=== PATIENT | female | born 1945 | race Caucasian/White ===

== ENCOUNTER 2017-01-28 06:33 | Inpatient (IN) | payer MEDICARE, MEDICAID ==
[2017-01-22 12:15] LABS: HEMATOCRIT 40.8 % (36.0-47.0); HEMOGLOBIN 13.1 g/dL (12.0-15.5); HGB HCT DIFFERENCE -1.5; MEAN CORPUSCULAR HGB CONC 32.1 g/dL (32.0-36.0); MEAN CORPUSCULAR VOLUME 87 fl (80-97); RED BLOOD COUNT 4.68 10^6/uL (3.72-5.28); RED CELL DISTRIBUTION WIDTH 16.7 % (11.5-14.0); WHITE BLOOD COUNT 9.1 10^3/uL (4.0-10.5)
--- NOTE | 2017-01-22 12:19 | RADIOLOGY REPORT (SQ) ---
EXAM DESCRIPTION: CHEST PA/LATERAL COMPLETED DATE/TIME: 01/22/2017 11:36 am REASON FOR STUDY: PRE OP COMPARISON: MRI lumbar spine 07/01/2012 AP chest 06/21/2012 EXAM PARAMETERS: NUMBER OF VIEWS: two views TECHNIQUE: Digital Frontal and Lateral radiographic views of the chest acquired. RADIATION DOSE: NA LIMITATIONS: none FINDINGS: LUNGS AND PLEURA: No opacities, masses or pneumothorax. No pleural effusion. MEDIASTINUM AND HILAR STRUCTURES: No masses or contour abnormalities. HEART AND VASCULAR STRUCTURES: Heart normal size. No evidence for failure. BONES: Stable lower thoracic compression deformities HARDWARE: None in the chest. OTHER: No other significant finding. IMPRESSION: NO SIGNIFICANT RADIOGRAPHIC FINDING IN THE CHEST. TECHNICAL DOCUMENTATION: JOB ID: [id number] [employer]- All Rights Reserved
[2017-01-22 12:24] LABS: APPEARANCE,URINE SLIGHTLY-CLOUDY; BILIRUBIN,URINE NEGATIVE (NEGATIVE); GLUCOSE, URINE NEGATIVE (NEGATIVE); KETONES,URINE NEGATIVE (NEGATIVE); LEUKOCYTE ESTERASE,URINE LARGE (NEGATIVE); NITRITE,URINE POSITIVE (NEGATIVE); PROTEIN,URINE NEGATIVE (NEGATIVE); URINE SPECIFIC GRAVITY 1.006; UROBILINOGEN,URINE NEGATIVE mg/dL (<2.0)
--- NOTE | 2017-01-22 12:44 | EKG REPORT ---
SEVERITY:- ABNORMAL ECG - SINUS RHYTHM LEFT ANTERIOR FASCICULAR BLOCK ANTERIOR INFARCT, AGE INDETERMINATE : Confirmed by: Jina Pike MD 22-Jan-2017 12:43:36
[2017-01-22 12:47] LABS: ALANINE AMINOTRANSFERASE 30 U/L (9-52); ALBUMIN 3.9 g/dL (3.5-5.0); ALKALINE PHOSPHATASE 125 U/L (38-126); ANION GAP 12 (5-19); ASPARTATE AMINO TRANSFERASE 23 U/L (14-36); BILIRUBIN,DIRECT 0.3 mg/dL (0.0-0.4); BILIRUBIN,TOTAL 0.4 mg/dL (0.2-1.3); BLOOD UREA NITROGEN 32 mg/dL (7-20); CALCIUM 10.4 mg/dL (8.4-10.2); CARBON DIOXIDE 29 mmol/L (22-30); CHLORIDE 102 mmol/L (98-107); CREATININE RESULT 1.06 mg/dL (0.52-1.25); GLUCOSE 128 mg/dL (75-110); POTASSIUM 4.5 mmol/L (3.6-5.0); SODIUM 142.6 mmol/L (137-145); TOTAL PROTEIN 7.8 g/dL (6.3-8.2)
[~2017-01-28 06:33] MED LIST: CEFAZOLIN 1 GM/D5W RTU 1 GM/50 ML RTUPB IV PRN; LACTATED RINGERS 1000 ML IV PRN; LIDOCAINE 0.5% INJ-PF (5 MG/ML) 50 ML SDV SUBCUT PRN
[2017-01-28] MEDS ORDERED: BUPIVACAINE HCL 0.25% /EPINEPHRINE INJ/PF 30 ML SDV ONE ×2 (07:23→11:13)
[2017-01-28] MEDS ORDERED: FENTANYL CITRATE INJ/PF 250 MCG/5 ML AMPULE ONE (08:52)
[2017-01-28] MEDS ORDERED: PROPOFOL INJ 200 MG/20 ML VIAL IV ONE (08:53)
[2017-01-28] MEDS ORDERED: IBUPROFEN INJ 800 MG/8 ML VIAL IV ONE (08:53)
[2017-01-28] MEDS ORDERED: MORPHINE SULFATE 10 MG/ML INJ ONE (08:53)
[2017-01-28] MEDS ORDERED: MIDAZOLAM 2 MG/2 ML INJ ONE (08:53)
[2017-01-28] MEDS ORDERED: METHYLENE BLUE 50 MG/10 ML AMPULE ONE (09:57)
[2017-01-28] MEDS ORDERED: ESTROGENS,CONJUGATED 0.625 MG/1 GM 30 GM TUBE PV PRN (10:47)
[2017-01-28] MEDS ORDERED: MORPHINE SULFATE 10 MG/ML INJ IV PRN ×2 (11:38→14:18)
[2017-01-28] MEDS ORDERED: MEPERIDINE HCL/PF INJ 25 MG/1 ML DISP.SYRIN IV PRN (11:38)
[2017-01-28] MEDS ORDERED: PROMETHAZINE HCL INJ 25 MG/1 ML VIAL IV PRN ×2 (11:38)
[2017-01-28] MEDS ORDERED: FENTANYL CITRATE INJ/PF 100 MCG/2 ML AMPUL IV PRN ×3 (11:38)
[2017-01-28] MEDS ORDERED: DIPHENHYDRAMINE HCL 50 MG/ML VIAL IV PRN (11:38)
[2017-01-28] MEDS ORDERED: OXYCODONE-ACETAMINOPHEN 5-325 MG TABLET PO PRN ×2 (11:38)
[2017-01-28] MEDS ORDERED: ACETAMINOPHEN 100 ML IV ONE ×2 (13:47→17:15)
[2017-01-28] MEDS: AMLODIPINE BESYLATE 5 MG TABLET PO ONE ×2 (13:50→15:07)
--- NOTE | 2017-01-28 13:51 | RADIOLOGY REPORT (SQ) ---
EXAM DESCRIPTION: NO CHG FLUORO COMPLETE DATE/TIME: 01/28/2017 1:38 pm REASON FOR STUDY: IVP N81.2 INCOMPLETE UTEROVAGINAL PROLAPSE R10.2 PELVIC AND PERINEAL PAIN N39.42 INCONTINENCE WITHOUT SENSORY AWARENESS FINDINGS: Please see combined report for performance of procedure and radiologic supervision and int erpretation. IMPRESSION: Please see combined report for performance of procedure and radiologic supervision and i nterpretation.
--- NOTE | 2017-01-28 13:51 | RADIOLOGY REPORT (SQ) ---
EXAM DESCRIPTION: KUB/ABDOMEN (SINGLE VIEW) COMPLETED DATE/TIME: 01/28/2017 1:38 pm REASON FOR STUDY: IVP N81.2 INCOMPLETE UTEROVAGINAL PROLAPSE R10.2 PELVIC AND PERINEAL PAIN N39.42 INCONTINENCE WITHOUT SENSORY AWARENESS COMPARISON: None. FLUOROSCOPY TIME: 2.9 minutes 2 images saved to PACS. TECHNIQUE: Intra-operative images acquired during surgical procedure to evaluate progress. NUMBER OF IMAGES: 2 LIMITATIONS: None. FINDINGS: Fluoroscopy was provided for intraoperative procedure. Please refer the operative report for further discussion. IMPRESSION: IMAGE(S) OBTAINED DURING PROCEDURE. COMMENT: Quality ID [id number]: Final reports for procedures using fluoroscopy that document radiation exp osure indices, or exposure time and number of fluorographic images (if radiation exposure indices are not available) Please consult full operative report of the attending physician for description of the procedure. TECHNICAL DOCUMENTATION: JOB ID: [id number] [employer]- All Rights Reserved
[2017-01-28] MEDS ORDERED: ONDANSETRON HCL INJ/PF 4 MG/2 ML SDV ONE (14:02)
[2017-01-28] MEDS ORDERED: METOCLOPRAMIDE HCL INJ/PF 10 MG/2 ML SDV ONE (14:02)
[2017-01-28] MEDS ORDERED: GLYCOPYRROLATE INJ 0.4 MG/2 ML VIAL ONE (14:02)
[2017-01-28] MEDS ORDERED: SUCCINYLCHOLINE CHLORIDE INJ 200 MG/10 ML VIAL ONE (14:02)
[2017-01-28] MEDS ORDERED: ROCURONIUM BROMIDE INJ 50 MG/5 ML VIAL IV ONE (14:02)
[2017-01-28] MEDS ORDERED: LIDOCAINE 2% INJ-PF (20 MG/ML) 10 ML AMPUL ONE (14:02)
[2017-01-28] MEDS ORDERED: NEOSTIGMINE METHYLSULFATE 10 MG/10 ML VIAL ONE (14:02)
[2017-01-28] MEDS ORDERED: FUROSEMIDE INJ/PF 40 MG/4 ML SDV ONE (14:23)
--- NOTE | 2017-01-28 14:41 | OPERATIVE REPORT E ---
Operative Report NAME: CHETNA SUGGS : 1945 AGE: 71Y DATE OF SURGERY: 01/28/2017 ROOM: OR PREOPERATIVE DIAGNOSIS: Complete procidentia. POSTOPERATIVE DIAGNOSIS: Complete procidentia. PROCEDURE: Total vaginal hysterectomy with anterior repair, posterior colporrhaphy and uterosacral suspension, cystoscopy, IVP done by Radiology, and Urology consult. SURGEON: SAMANTHA SAWYER M.D. PILOT SUPERVISOR: Dr. Joaquin ANESTHESIA: Dr. Dee with general. FINDINGS: A grade 4 uterovaginal prolapse of the anterior aspect. Small amount of maybe grade 1 posterior prolapse at the introitus of the vagina. On cystoscopy ureters could not be seen to efflux; therefore, a Urology consult was performed with Dr. Cazarse passing guidewires through both ureters without difficulty and verifying that they were patent and unobstructed. PROCEDURE IN DETAIL: The patient was taken to the operating room, prepared and draped in a normal sterile fashion in a dorsal lithotomy position in [facility]. A Bernal catheter was placed to gravity and the above findings were noted in regards to the prolapse. The anterior aspect of the cervix was grasped with a single-tooth tenaculum and the cervix was injected circumferentially with approximately 20 mL of 0.25% Marcaine with epinephrine. The mucosa was then scored circumferentially and the mucosa dissected away from the uterus using Cunningham scissors and pickups. The posterior cul-de-sac was entered sharply with Toni and the weighted speculum was replaced with a long weighted speculum. The uterosacral ligaments were then clamped and transected and tied off with 0 Vicryl on both sides without difficulty. The anterior aspect of the peritoneal cavity was then entered sharply with Toni as well, and a Severance retractor was placed for retraction. The rest of the uterus was then coagulated using a LigaSure device, carefully coagulating the bilateral uterine arteries until the level of the fundus until the specimen was freed. The fallopian tubes and ovaries were found to be well suspended and in light of the case were found not necessary for removal. We then began the anterior repair, grasping the anterior vaginal mucosa with 2 Allis and injecting in the midline with 0.25% Marcaine with epinephrine. The mucosa was then scored with a #15 blade and the mucosa was then dissected from the bladder using Metzenbaums and careful blunt dissection. The anterior repair was then performed using 0 Prolene, placing approximately 4 sutures across the bladder for support and tying these into place carefully. The mucosa was then dissected away from the bladder and the excess was trimmed. The vaginal cuff and the anterior repair were then closed using a vertical running stitch of 0 Vicryl. The uterosacral ligament suspension was performed prior to this using an 0 Prolene as well, and this stitch was held in place until we could verify the ureters were patent. The cystoscopy was performed, methylene blue was given x2, and the ureters were not able to be identified and found to be effluxing; therefore, after careful inspection with the cystoscopy for approximately 45 minutes we called Urology, Dr. Cazares, who came in. We had also initiated an IVP with Radiology and this was performed with the urologist present as well. Dr. Cazares then cystoscoped the patient once more and using a 5-Latvian catheter and guidewire was able to engage both ureters and verify their patency. The posterior colporrhaphy was then performed after injecting 10 mL of 0.25% Marcaine into the posterior introitus. An elliptical piece of mucosa was removed using a #15 blade. The bulbocavernosus muscles were then reapproximated with 2 stitches of 0 Vicryl and tied into place. The mucosa was then closed with 3-0 Vicryl in this area. The Bernal catheter was replaced. The vagina was then inspected once more and found to be hemostatic. The vagina was then packed with a Kerlix coated in Premarin cream, and the patient was taken to recovery in stable condition. DICTATING PHYSICIAN: SAMANTHA SAWYER M.D. [id number] PHY#: [id number] ID: [id number] JOB#: [id number] ACCT: [id number] cc:SAMANTHA SAWYER M.D. >
--- NOTE | 2017-01-28 14:44 | CONSULTATION REPORT E ---
Consultation Report NAME: CHETNA SUGGS : 1945 AGE: 71Y DATE: 01/28/2017 OR D TO: IMANI MORFIN M.D. FROM: Requesting Physician IMPRESSION: Normal cystoscopy with bilateral ureteral catheterization. RECOMMENDATIONS: Her bladder and ureters appear normal. Nothing further is needed from a urologic standpoint at this juncture. CONSULTATION: The patient is 71-year-old lady who had a bilateral salpingo-oophorectomy and ureteral sacral suspension with an anterior and posterior repair. At the conclusion of the procedure, Dr. Sawyer asked for me to evaluate the patient's ureters. She had been given methylene blue but there was scant methylene blue seen coming from either orifice so Dr. Sawyer wanted to be sure that the ureters were normal. I examined the bladder. There were no ulcerations, tumors or stones. The bladder mucosa appeared normal. The trigone had some redundant mucosa but the ureter orifices were normal in their location and configuration. I passed a guidewire up the left ureter and then was able to easily thread a 5-Algerian open-ended catheter up to the kidney. I then passed a guidewire up the right ureter and passed a 5-Algerian open-ended catheter up to the level of the kidney on the patient's right side. IMPRESSION: Normal cystoscopy. DICTATING PHYSICIAN: IMANI MORFIN M.D. [id number] PHY#: [id number] ID: [id number] JOB#: [id number] ACCT: [id number] cc:SAMANTHA SAWYER M.D. IMANI MORFIN M.D. >
[2017-01-28] MEDS: KETOROLAC TROMETHAMINE INJ/PF 30 MG/1 ML SDV IV SCH ×2 (15:09→21:41)
[2017-01-28] MEDS ORDERED: RINGERS SOLUTION,LACTATED 1,000 ML IV PRN (15:25)
[2017-01-28] MEDS ORDERED: FUROSEMIDE 40 MG TABLET PO PRN (15:36)
[2017-01-28] MEDS ORDERED: ACETAMINOPHEN INJ/PF 1000 MG/100 ML SDV IV ONE (17:00)
[2017-01-28] MEDS: AMPICILLIN SODIUM/SULBACTAM NA 3 GM in NORMAL SALINE 100 ML IV SCH (17:34)
[2017-01-28] MEDS: DOCUSATE SODIUM 100 MG CAPSULE PO SCH (17:35)
[2017-01-28] MEDS: OXYCODONE-ACETAMINOPHEN 5-325 MG TABLET PO PRN (19:02)
[2017-01-28] MEDS: ATORVASTATIN CALCIUM 10 MG TABLET PO SCH (21:41)
[2017-01-29] MEDS: AMPICILLIN SODIUM/SULBACTAM NA 3 GM in NORMAL SALINE 100 ML IV SCH ×2 (01:18→09:33)
[2017-01-29] MEDS: OXYCODONE-ACETAMINOPHEN 5-325 MG TABLET PO PRN ×3 (02:06→22:27)
[2017-01-29 05:01] LABS: HEMATOCRIT 33.5 % (36.0-47.0); HEMOGLOBIN 10.9 g/dL (12.0-15.5); HGB HCT DIFFERENCE -0.8; MEAN CORPUSCULAR HEMOGLOBIN 28.3 pg (27.0-33.4); MEAN CORPUSCULAR HGB CONC 32.7 g/dL (32.0-36.0); MEAN CORPUSCULAR VOLUME 87 fl (80-97); RED BLOOD COUNT 3.87 10^6/uL (3.72-5.28); RED CELL DISTRIBUTION WIDTH 16.2 % (11.5-14.0)
[2017-01-29] MEDS: KETOROLAC TROMETHAMINE INJ/PF 30 MG/1 ML SDV IV SCH (05:42)
[2017-01-29] MEDS: AMLODIPINE BESYLATE 5 MG TABLET PO SCH (08:34)
[2017-01-29] MEDS: ASPIRIN 81 MG TABLET, CHEWABLE PO SCH (08:34)
[2017-01-29] MEDS: FUROSEMIDE 20 MG TABLET PO SCH (08:34)
[2017-01-29] MEDS: BENAZEPRIL HCL 20 MG TABLET PO SCH (08:35)
[2017-01-29] MEDS: BACLOFEN 10 MG TABLET PO SCH (08:35)
[2017-01-29] MEDS: DOCUSATE SODIUM 100 MG CAPSULE PO SCH ×2 (08:35→17:30)
--- NOTE | 2017-01-29 12:28 | PDOC PROGRESS REPORT ---
Subjective Progress Note for:: 01/29/17 Subjective:: doing well. aviles removed this AM. no void as yet. tolerating regular diet Physical Exam - Physical Exam Vital Signs: Temp Pulse Resp BP Pulse Ox 98.2 F 74 19 113/48 L 96 01/29/17 11:15 01/29/17 11:15 01/29/17 11:15 01/29/17 11:15 01/29/17 11:15 Intake & Output 01/28/17 01/29/17 01/30/17 06:59 06:59 06:59 Intake Total 4525 Output Total 1460 Balance 3065 General appearance: PRESENT: no acute distress, cooperative Head exam: PRESENT: atraumatic GI/Abdominal exam: PRESENT: soft Gentrourinary exam: PRESENT: ecchymosis, urethral discharge - small amount of blood Result Laboratory Results: 01/29/17 04:49 01/22/17 10:53 01/29/17 04:49 WBC 11.0 H RBC 3.87 Hgb 10.9 L Hct 33.5 L MCV 87 MCH 28.3 MCHC 32.7 RDW 16.2 H Plt Count 183 Impressions: Chest X-Ray 01/22/17 11:23 IMPRESSION: NO SIGNIFICANT RADIOGRAPHIC FINDING IN THE CHEST. Fluoroscopy 01/28/17 00:00 IMPRESSION: Please see combined report for performance of procedure and radiologic supervision and interpretation. KUB X-Ray 01/28/17 00:00 IMPRESSION: IMAGE(S) OBTAINED DURING PROCEDURE. Assessment & Plan - Diagnosis (1) Uterovaginal prolapse, complete Is this a current diagnosis for this admission?: Yes (2) Pelvic pain in female Is this a current diagnosis for this admission?: Yes (3) Urinary tract infection Qualifiers: Urinary tract infection type: acute cystitis Is this a current diagnosis for this admission?: Yes (4) Bladder hypertrophy Is this a current diagnosis for this admission?: Yes - Time Time Spent with patient: Less than 15 minutes Critical Time spent with patient: Less than 15 minutes Medications reviewed and adjusted accordingly: Yes Anticipated discharge: Home Within: within 24 hours - Inpatient Certification Based on my medical assessment, after consideration of the patient's comorbidities, presenting symptoms, or acuity I expect that the services needed warrant INPATIENT care.: Yes I certify that my determination is in accordance with my understanding of Medicare's requirements for reasonable and necessary INPATIENT services [42 CFR 412.3e].: Yes Medical Necessity: Need Close Monitoring Due to Risk of Patient Decompensation, Need for IV Antibiotics, Risk of Complication if Not Cared For in Hospital - Plan Summary Plan Summary: will observe for normal voiding function to return. may need to have aviles catheter replaced. possible discharge with leg bag and urology f/u if voiding function does not return. saline lock iv encourage ambulation repeat UA to ensure nitrites have cleared.
[2017-01-29 17:16] LABS: APPEARANCE,URINE SLIGHTLY-CLOUDY; BILIRUBIN,URINE NEGATIVE (NEGATIVE); GLUCOSE, URINE NEGATIVE (NEGATIVE); KETONES,URINE NEGATIVE (NEGATIVE); LEUKOCYTE ESTERASE,URINE MODERATE (NEGATIVE); NITRITE,URINE NEGATIVE (NEGATIVE); PROTEIN,URINE NEGATIVE (NEGATIVE); URINE SPECIFIC GRAVITY 1.012; UROBILINOGEN,URINE NEGATIVE mg/dL (<2.0)
[2017-01-29] MEDS: IBUPROFEN 800 MG TABLET PO PRN (20:07)
[2017-01-29] MEDS: ATORVASTATIN CALCIUM 10 MG TABLET PO SCH (22:33)
[2017-01-30] MEDS: OXYCODONE-ACETAMINOPHEN 5-325 MG TABLET PO PRN ×2 (04:29→11:21)
[2017-01-30] MEDS: FUROSEMIDE 20 MG TABLET PO SCH (08:27)
[2017-01-30] MEDS: DOCUSATE SODIUM 100 MG CAPSULE PO SCH (08:27)
[2017-01-30] MEDS: ASPIRIN 81 MG TABLET, CHEWABLE PO SCH (08:27)
[2017-01-30] MEDS: IBUPROFEN 800 MG TABLET PO PRN (08:29)
[2017-01-30] MEDS: BENAZEPRIL HCL 20 MG TABLET PO SCH (08:29)
[2017-01-30] MEDS: BACLOFEN 10 MG TABLET PO SCH (08:29)
[2017-01-30] MEDS: AMLODIPINE BESYLATE 5 MG TABLET PO SCH (08:29)
--- NOTE | 2017-01-30 12:22 | PDOC DISCHARGE SUMMARY ---
General - Admit/Disc Date/PCP Admission Date/Primary Care Provider: 01/28/17 06:33 Discharge Date: 01/30/17 - Discharge Diagnosis (1) Uterovaginal prolapse, complete Is this a current diagnosis for this admission?: Yes (2) Pelvic pain in female Is this a current diagnosis for this admission?: Yes (3) Urinary tract infection Is this a current diagnosis for this admission?: Yes (4) Bladder hypertrophy Is this a current diagnosis for this admission?: Yes - Additional Information Home Medications: Amlodipine Besylate [Norvasc 5 mg Tablet] 5 mg PO DAILY 01/25/12 Aspirin [Aspirin 81 mg Chewable Tablet] 81 mg PO DAILY 01/25/12 Baclofen [Baclofen 10 Mg Tablet] 10 mg PO DAILY 01/25/12 Benazepril HCl [Lotensin] 40 mg PO DAILY 01/25/12 Furosemide [Lasix 40 mg Tablet] 20 mg PO QAM PRN 01/25/12 Pravastatin Sodium [Pravachol] 20 mg PO DAILY 01/25/12 Glyburide [Diabeta 5 mg Tablet] 5 mg PO QAM 06/21/12 History of Present Illness History of Present Illness: CHETNA SUGGS is a 71 year old female Hospital Course Hospital Course: underwent vaginal hysterectomy w/ USS A and P repair. had urology consult intraoperatively to assess patency of ureters as methylene blue was not seen on cystoscopy. mild urinary retention on POD 1 that is now resolved. Physical Exam - Physical Exam Vital Signs: Temp Pulse Resp BP Pulse Ox 97.6 F 68 16 117/42 L 97 01/30/17 11:22 01/30/17 11:22 01/30/17 11:22 01/30/17 11:22 01/30/17 11:22 Intake & Output 01/29/17 01/30/17 01/31/17 06:59 06:59 06:59 Intake Total 4525 1000 Output Total 1460 2350 Balance 3065 -1350 General appearance: PRESENT: no acute distress, cooperative GI/Abdominal exam: PRESENT: soft Result Laboratory Results: 01/29/17 04:49 01/22/17 10:53 01/29/17 17:05 Urine Color GREEN Urine Appearance SLIGHTLY-CLOUDY Urine pH 5.0 Ur Specific [place] 1.012 Urine Protein NEGATIVE Urine Glucose (UA) NEGATIVE Urine Ketones NEGATIVE Urine Blood LARGE H Urine Nitrite NEGATIVE Ur Leukocyte Esterase MODERATE H Urine WBC (Auto) 34 Urine RBC (Auto) 98 Impressions: Chest X-Ray 01/22/17 11:23 IMPRESSION: NO SIGNIFICANT RADIOGRAPHIC FINDING IN THE CHEST. Fluoroscopy 01/28/17 00:00 IMPRESSION: Please see combined report for performance of procedure and radiologic supervision and interpretation. KUB X-Ray 01/28/17 00:00 IMPRESSION: IMAGE(S) OBTAINED DURING PROCEDURE. Plan Discharge Plan: discharge home today as patient doing very well. continue home meds for hypertension and diabetes. metformin window over from IVP dye given in surgery. keep appt for f/u with Dr. Jeffries instructions for pelvic rest and refrain from tub baths given Time Spent: Less than 30 Minutes
[2017-01-30 12:32] VITALS: BP 113/48
== END 2017-01-30 13:20 | disposition home or self-care (01) | DRG 742 ==
LOC: INOR 06:33 → 2N 14:45
PROVIDERS: ADMIT Obstetrics & Gynecology; ATTEND Obstetrics & Gynecology
PROC: 0USGXZZ Reposition Vagina, External Approach (ICD-10-PCS; 2017-01-28)
PROC: 0UTC7ZZ Resection of Cervix, Via Natural or Artificial Opening (ICD-10-PCS; 2017-01-28)
PROC: 0JQC0ZZ Repair Pelvic Region Subcutaneous Tissue and Fascia, Open Approach (ICD-10-PCS; 2017-01-28)
PROC: 0TJB8ZZ Inspection of Bladder, Via Natural or Artificial Opening Endoscopic (ICD-10-PCS; 2017-01-28)
PROC: 0UT97ZZ Resection of Uterus, Via Natural or Artificial Opening (ICD-10-PCS; principal; 2017-01-28 09:00)
DX: N81.3 Complete uterovaginal prolapse (principal); N39.0 Urinary tract infection, site not specified; N32.89 Other specified disorders of bladder; R10.2 Pelvic and perineal pain; N39.42 Incontinence without sensory awareness; I10 Essential (primary) hypertension; E11.9 Type 2 diabetes mellitus without complications; Z79.899 Other long term (current) drug therapy
CPT/HCPCS: 36415; 71020; 74000; 80053; 81001; 82962; 85027; 86850; 86900; 86901; 88307; 93005; 93010; 944; C1758; J0131; J0295; J0330; J0690; J1741; J1885; J1940; J2250; J2270; J2405; J2704; J2765; J3010; J3490; J7120; Q9967; Q9968

== ENCOUNTER 2018-02-16 14:50 | Emergency (ER) | payer MEDICAID, MEDICARE ==
[~2018-02-16 14:50] MED LIST changes: -CEFAZOLIN 1 GM/D5W RTU 1 GM/50 ML RTUPB IV PRN; +DOPAMINE HCL/D5W 800 MG/250 ML RTU BAG IV ONE; -LACTATED RINGERS 1000 ML IV PRN; -LIDOCAINE 0.5% INJ-PF (5 MG/ML) 50 ML SDV SUBCUT PRN
[2018-02-16] MEDS ORDERED: NORMAL SALINE IV ONE (15:02)
[2018-02-16] MEDS ORDERED: NOREPINEPHRINE BITARTRATE INJ/PF 4 MG/4 ML SDV IV ONE (15:08)
--- NOTE | 2018-02-16 15:31 | ER Document Report ---
ED General - General Stated Complaint: CHEST PAINS Time Seen by Provider: 02/16/18 14:59 Mode of Arrival: Medic Information source: Emergency Med Personnel Notes: 72-year-old female brought to the emergency department by EMS status post cardiac arrest. Patient was found down in the prone position by her . EMS was called. says that the patient has had nausea and vomiting for about 4 days. Hx of Diabetes. He's not sure if she's taking her medication. When they arrived on scene patient was initially in asystole. 5 epinephrine, 2 sodium bicarb, 1 calcium was given. Patient then went into normal sinus rhythm. Patient then went into ventricular tachycardia with a pulse. 150 mg of amiodarone was given. Patient's blood pressure began to trend down. Patient was given 1 IV push by EMS. A Maicol airway was placed. In the emergency department, patient is hypotensive. Patient received 1 L of fluids in route by EMS. Patient's Maicol airway was switched out for an endotracheal tube. Patient smells of urine. Possible sepsis. EMS state that the patient's blood sugar was greater than 600. Possible DKA. TRAVEL OUTSIDE OF THE [place] IN LAST 30 DAYS: Yes - HPI Onset: Just prior to arrival Onset/Duration: Sudden - Related Data Allergies/Adverse Reactions: No Known Allergies Allergy (Unverified 01/22/17 10:11) Past Medical History - Social History Smoking Status: Unknown if Ever Smoked Family History: Reviewed & Not Pertinent - Past Medical History Cardiac Medical History: Reports: Hx Hypertension Denies: Hx Atrial Fibrillation, Hx Congestive Heart Failure, Hx Coronary Artery Disease, Hx Heart Attack, Hx Hypercholesterolemia, Hx Peripheral Vascular Disease, Hx Pulmonary Embolism, Hx Heart Murmur Pulmonary Medical History: Denies: Hx Asthma, Hx Bronchitis, Hx COPD, Hx Pneumonia, Hx Respiratory Failure, Hx Sleep Apnea, Hx Tuberculosis Neurological Medical History: Denies: Hx Cerebrovascular Accident, Hx Seizures Endocrine Medical History: Reports: Hx Diabetes Mellitus Type 2. Denies: Hx Graves' Disease, Hx Hyperthyroidism, Hx Hypothyroidism Renal/ Medical History: Denies: Hx End Stage Renal Disease, Hx Kidney Stones, Hx Ovarian Cysts, Hx Peritoneal Dialysis, Hx Pelvic Inflammatory Disease Malignancy Medical History: Denies: Hx Breast Cancer, Hx Cervical Cancer, Hx Leukemia, Hx Lung Cancer, Hx Ovarian Cancer GI Medical History: Denies: Hx Crohn's Disease, Hx Gastroesophageal Reflux Disease, Hx Hepatitis, Hx Hiatal Hernia, Hx Irritable Bowel, Hx Liver Failure, Hx Pancreatitis, Hx Ulcer Musculoskeletal Medical History: Reports Hx Arthritis - LOWER BACK, Denies Hx Fibromyalgia, Denies Hx Multiple Sclerosis, Denies Hx Muscular Dystrophy Psychiatric Medical History: Reports: Hx Depression - LOSS OF MOTHER 2YRS. AGO AND DAUGHTER IN REHAB Denies: Hx Bipolar Disorder, Hx Dementia, Hx Post Traumatic Stress Disorder, Hx Schizophrenia Traumatic Medical History: Denies: Hx Fractures Infectious Medical History: Denies: Hx Hepatitis, Hx HIV Past Surgical History: Denies: Hx Appendectomy, Hx Bowel Surgery, Hx Section, Hx Cholecystectomy, Hx Colostomy, Hx Coronary Artery Bypass Graft, Hx Gastric Bypass Surgery, Hx Herniorrhaphy, Hx Hysterectomy, Hx Mastectomy, Hx Open Heart Surgery, Hx Pacemaker, Hx Tonsillectomy, Hx Tubal Ligation - Immunizations Hx Diphtheria, Pertussis, Tetanus Vaccination: Yes Review of Systems - Review of Systems -: Yes ROS unobtainable due to patient's medical condition Physical Exam - Vital signs Vitals: Pulse Ox 94 02/16/18 14:50 Interpretation: Normal - Notes Notes: PHYSICAL EXAMINATION: GENERAL: Unresponsive. HEAD: No signs of trauma EYES: Pupils 6mm and unreactive. ENT: Nares patent, oropharynx clear without exudates. Moist mucous membranes. NECK: No lymphadenopathy LUNGS: Intubated. Breath sounds clear to auscultation bilaterally and equal. No wheezes rales or rhonchi. HEART: Regular rate and rhythm without murmurs ABDOMEN: Obese. Soft, nontender, nondistended abdomen. Musculoskeletal: 2+ femoral, DP/PT pulses. NEUROLOGICAL: GCS 3T. No gag or corneal reflex. No withdrawal to painful stimuli SKIN: Warm, Dry, normal turgor, no rashes or lesions noted. Course - Re-evaluation Re-evalutation: 02/16/18 15:40 Labs and imaging ordered. Patient given a 30 cc/kg bolus of fluids. Patient continues to be hypotensive. Dopamine started. Patient maxed out on dopamine. Levophed started. Patient maxed on levophed. Epinephrine drip started. Labs show severe DKA. Patient receiving additional fluids. Patient given calcium gluconate, 1amp of bicarb, 10U of insulin, and an albuterol neb for potassium of 6.2. DKA orders started. 02/16/18 18:16 I contacted the hospitalist for admission. Dr. Braun came down to the ED to evaluate the patient. He wants to discuss code status with the patient's . Dr. Braun, the patient's , and I discussed how she was in critical condition and there was not much more we can do to stabilize her. We would need to transfer to higher level of care if the patient's code status is full code. We asked the what her wishes would be. wants all life saving measures stopped at this time. Family and brought to bedside. They are all in agreement that the patient's wishes would be to be taken off all life saving measures. Discussed patient's labs, imaging, and prognosis with family. wants to make her DNR. Will stop all life saving measures. 02/16/18 18:59 At 18:20 the patient was extubated and all life saving interventions ceased. At 18:30 patient was pronounced. - Vital Signs Vital signs: Temp Pulse Resp BP Pulse Ox 90 14 66/46 L 99 02/16/18 16:14 02/16/18 18:17 02/16/18 18:17 02/16/18 17:56 - Laboratory Result Diagrams: 02/16/18 16:28 02/16/18 15:00 Laboratory results interpreted by me: 02/16/18 02/16/18 02/16/18 15:00 15:00 15:00 WBC MCV MCHC RDW Plt Count Monocytes % (Manual) Abs Neuts (Manual) Carbonic Acid ABG pH ABG pCO2 ABG pO2 ABG HCO3 ABG Total CO2 Potassium 6.2 H* Carbon Dioxide 9 L* Anion Gap 34 H BUN 30 H Creatinine 2.82 H Est GFR ( Amer) 20 L Est GFR (Non-Af Amer) 17 L Glucose 1019 H* Lactic Acid 23.4 H Phosphorus 13.7 H Magnesium 2.7 H Total Bilirubin 1.6 H Direct Bilirubin 1.2 H AST 963 H ALT 512 H Alkaline Phosphatase 136 H Total Protein 4.3 L Albumin 2.2 L Lipase 38174.8 H Salicylates < 1.0 L Acetaminophen < 10 L 02/16/18 02/16/18 15:30 16:28 WBC 16.7 H MCV 106 H MCHC 28.6 L RDW 16.3 H Plt Count 138 L Monocytes % (Manual) 2 L Abs Neuts (Manual) 12.2 H Carbonic Acid 1.39 H ABG pH 6.79 L* ABG pCO2 46.3 H ABG pO2 145.5 H ABG HCO3 6.9 L ABG Total CO2 8.3 L Potassium Carbon Dioxide Anion Gap BUN Creatinine Est GFR ( Amer) Est GFR (Non-Af Amer) Glucose Lactic Acid Phosphorus Magnesium Total Bilirubin Direct Bilirubin AST ALT Alkaline Phosphatase Total Protein Albumin Lipase Salicylates Acetaminophen - EKG Interpretation by Me Additional EKG results interpreted by me: 02/16/18 15:30 EKG: Ventricular rate 68, IA interval 192, castration 112, QTc 477, sinus rhythm , incomplete right bundle branch block, no ischemic changes. Procedures - Intubation Orotracheal Airway evaluation: Normal anatomy Mallampati Classification: Class 1 Intubation method: Orotracheal Blade type: Miguel Blade size: 4 Equipment used: Glidescope ETT size: 7.5 ETT secured at: Gums ETT secured at (cm): 23 Breath Sounds after Intubation: Equal End tidal CO2 confirmed: Yes Post Intubation Xray: Yes Intubation Complications: No complications Critical Care Note - Critical Care Note Total time excluding time spent on procedures (mins): 2 Discharge - Discharge Clinical Impression: Cardiac arrest DKA (diabetic ketoacidoses) Qualifiers: Diabetes mellitus type: other specified (including MADDIE) Diabetes mellitus complication detail: with coma Qualified Code(s): E13.11 - Other specified diabetes mellitus with ketoacidosis with coma Condition: Critical Disposition:
[2018-02-16 15:41] LABS: ALANINE AMINOTRANSFERASE 512 U/L (9-52); ALBUMIN 2.2 g/dL (3.5-5.0); ALKALINE PHOSPHATASE 136 U/L (38-126); BILIRUBIN,DIRECT 1.2 mg/dL (0.0-0.4); BILIRUBIN,TOTAL 1.6 mg/dL (0.2-1.3); BLOOD UREA NITROGEN 30 mg/dL (7-20); CALCIUM 9.2 mg/dL (8.4-10.2); TOTAL PROTEIN 4.3 g/dL (6.3-8.2)
[2018-02-16 15:46] LABS: CHLORIDE 100 mmol/L (98-107); SODIUM 142.6 mmol/L (137-145)
[2018-02-16 15:51] LABS: ARTERIAL BLOOD BASE EXCESS -28.2 mmol/L; ARTERIAL BLOOD H2CO3 1.39 mmol/L (1.05-1.35); ARTERIAL BLOOD HCO3 6.9 mmol/L (20-26); ARTERIAL BLOOD O2 SATURATION 95.9 % (94-98); ARTERIAL BLOOD PCO2 46.3 mmHg (35-45); ARTERIAL BLOOD PO2 145.5 mmHg (80-100); ARTERIAL BLOOD TOTAL CO2 8.3 mmol/L (21-25)
[2018-02-16 16:00] LABS: ARTERIAL BLOOD FIO2 50%
[2018-02-16 16:01] LABS: ASPARTATE AMINO TRANSFERASE 963 U/L (14-36)
[2018-02-16 16:08] LABS: ALCOHOL < 10 mg/dL (NONE DETECTED)
[2018-02-16 16:11] LABS: ARTERIAL BLOOD PH 6.79 (7.35-7.45)
[2018-02-16 16:12] LABS: ACETAMINOPHEN < 10 ug/mL (10-30); SALICYLATE < 1.0 mg/dL (2.0-20.0)
[2018-02-16 16:14] LABS: GLUCOSE 1019 mg/dL (75-110); POTASSIUM 6.2 mmol/L (3.6-5.0)
[2018-02-16 16:15] LABS: ANION GAP 34 (5-19); CARBON DIOXIDE 9 mmol/L (22-30)
--- NOTE | 2018-02-16 16:26 | RADIOLOGY REPORT (SQ) ---
EXAM DESCRIPTION: CHEST SINGLE VIEW COMPLETED DATE/TIME: 02/16/2018 4:02 pm REASON FOR STUDY: post intubation COMPARISON: 01/22/2017 EXAM PARAMETERS: NUMBER OF VIEWS: One view. TECHNIQUE: Single frontal radiographic view of the chest acquired. RADIATION DOSE: NA LIMITATIONS: None. FINDINGS: LUNGS AND PLEURA: Low lung volumes results in bronchovascular crowding. No focal consolid ation, pneumothorax, or pleural effusion is evident. MEDIASTINUM AND HILAR STRUCTURES: No masses. Contour normal. HEART AND VASCULAR STRUCTURES: Heart normal in size. Normal vasculature. BONES: No acute findings. HARDWARE: An endotracheal tube terminates over the tracheal air shadow approximately 3 cm cranial to the indigo. An enteric tube terminates subdiaphragmatically out of the field of view. OTHER: No other significant finding. IMPRESSION: 1. Endotracheal and enteric tubes without evidence of complication. 2. Low lung volumes results in bronchovascular crowding. No discrete radiographic evidence of acute cardiopulmonary abnormality on this limited exam. TECHNICAL DOCUMENTATION: JOB ID: [id number] [employer]- All Rights Reserved Reading location - IP/workstation name: [email or web address]
[2018-02-16] MEDS ORDERED: SODIUM BICARBONATE 8.4% INJ 50 MEQ/50 ML DISP.SYRIN IV ONE (16:27)
[2018-02-16] MEDS ORDERED: CALCIUM GLUCONATE 1000 MG/10 ML INJ IV ONE (16:28)
[2018-02-16] MEDS ORDERED: ALBUTEROL SULFATE 0.083% NEB 2.5 MG/3 ML AMPUL NEB ONE (16:29)
[2018-02-16] MEDS ORDERED: INSULIN REG, HUMAN 100 UNIT/ML 3 ML VIAL (PYX) IV ONE (16:29)
--- NOTE | 2018-02-16 16:31 | RADIOLOGY REPORT (SQ) ---
EXAM DESCRIPTION: CT HEAD WITHOUT COMPLETED DATE/TIME: 02/16/2018 4:13 pm REASON FOR STUDY: fall COMPARISON: 05/23/2009 TECHNIQUE: Axial images acquired through the brain without intravenous contrast. Images reviewed wi th bone, brain and subdural windows. Additional sagittal and coronal reconstructions were generated. Images stored on PACS. All CT scanners at this facility use dose modulation, iterative reconstruction, and/or weight based d osing when appropriate to reduce radiation dose to as low as reasonably achievable (ALARA). [facility]: Dose Right [facility]: CareDose [facility]: Dose Right [facility]: Teradose 4D [facility]: [employer] RADIATION DOSE: CT Rad equipment meets quality standard of care and radiation dose reduction techniq ues were employed. CTDIvol: 53.2 mGy. DLP: 1097 mGy-cm. mGy. LIMITATIONS: None. FINDINGS: VENTRICLES: Normal size and contour. CEREBRUM: No masses. No hemorrhage. No midline shift. No evidence for acute infarction. Normal gra y/white matter differentiation. No areas of low density in the white matter. CEREBELLUM: No masses. No hemorrhage. No alteration of density. No evidence for acute infarction. EXTRAAXIAL SPACES: No fluid collections. No masses. ORBITS AND GLOBE: No intra- or extraconal masses. Normal contour of globe without masses. CALVARIUM: No fracture. PARANASAL SINUSES: No fluid or mucosal thickening. SOFT TISSUES: No mass or hematoma. OTHER: Atherosclerotic vascular calcifications are seen within the cavernous segments and internal ca rotid arteries. Partially imaged enteric and endotracheal tubes. IMPRESSION: No evidence of calvarial fracture or intracranial hemorrhage. EVIDENCE OF ACUTE STROKE: NO. COMMENT: Quality ID # [id number]: Final reports with documentation of one or more dose reduction techniques (e.g., Automated exposure control, adjustment of the mA and/or kV according to patient size, use of iterative reconstruction technique) TECHNICAL DOCUMENTATION: JOB ID: [id number] [employer]- All Rights Reserved Reading location - IP/workstation name: [email or web address]
[2018-02-16] MEDS ORDERED: EPINEPHRINE INJ/PF 1 MG/1 ML AMPULE ONE (16:36)
[2018-02-16 16:39] LABS: LIPASE 11582.8 U/L (23-300)
[2018-02-16 16:59] LABS: PHOSPHORUS 13.7 mg/dL (2.5-4.5)
[2018-02-16 17:18] LABS: HEMATOCRIT 44.3 % (36.0-47.0); HEMOGLOBIN 12.7 g/dL (12.0-15.5); MEAN CORPUSCULAR HEMOGLOBIN 30.2 pg (27.0-33.4); MEAN CORPUSCULAR HGB CONC 28.6 g/dL (32.0-36.0); MEAN CORPUSCULAR VOLUME 106 fl (80-97); PLATELET COUNT 138 10^3/uL (150-450); RED CELL DISTRIBUTION WIDTH 16.3 % (11.5-14.0); WHITE BLOOD COUNT 16.7 10^3/uL (4.0-10.5)
[2018-02-16 17:39] LABS: ABSOLUTE LYMPHOCYTES# (MANUAL) 4.2 10^3/uL (0.5-4.7); ABSOLUTE MONOCYTES # (MANUAL) 0.3 10^3/uL (0.1-1.4); ABSOLUTE NEUTROPHILS# (MANUAL) 12.2 10^3/uL (1.7-8.2); BASOPHILS % (MANUAL) 0 % (0-2); EOSINOPHILS % (MANUAL) 0 % (0-6); LYMPHOCYTES % (MANUAL) 25 % (13-45); MONOCYTES % (MANUAL) 2 % (3-13); SEGMENTED NEUTROPHILS % (MAN) 73 % (42-78); TOTAL CELLS COUNTED 100
[2018-02-16 17:45] LABS: ANISOCYTOSIS 1+; POLYCHROMASIA SLIGHT; TOXIC GRANULATION 1+; TOXIC VACUOLATION PRESENT
[2018-02-16 17:46] LABS: PLATELET CLUMPS PRESENT; PLATELET COMMENT ADEQUATE
[2018-02-16 19:15] VITALS: BP 66/46
--- NOTE | 2018-02-17 00:53 | EKG REPORT ---
SEVERITY:- ABNORMAL ECG - SINUS RHYTHM PROBABLE LEFT ATRIAL ABNORMALITY INCOMPLETE RIGHT BUNDLE BRANCH BLOCK ABNRM R PROG, CONSIDER ASMI OR LEAD PLACEMENT : Confirmed by: Jina Pike MD 17-Feb-2018 00:53:11
== END 2018-02-16 20:40 | disposition expired ==
LOC: ER 14:50
PROC: 0BH17EZ Insertion of Endotracheal Airway into Trachea, Via Natural or Artificial Opening (ICD-10-PCS; principal; 2018-02-16)
DX: I46.9 Cardiac arrest, cause unspecified (principal); E13.11 Other specified diabetes mellitus with ketoacidosis with coma; R11.2 Nausea with vomiting, unspecified; I95.9 Hypotension, unspecified
CPT/HCPCS: 93005; 36415; 87040; 80307 ×3; 82803; 83690; 83735; 84100; 85025; 80053; 84484; 83605; 71045; 70450; 94660; 93010; 36600; 31500; J0610; J1265; J0171; J3490 ×2; A9270 ×2; J7030; 94002; J1815